=== PATIENT | male | born 1985 | race Two or more races ===

== ENCOUNTER 2017-07-19 17:38 | Emergency (ER) | payer SELFPAY ==
[~2017-07-19] VITALS: Ht 167.6 cm; Wt 60.8 kg
--- NOTE | 2017-07-19 17:52 | NUR ---
1 cm laceration to L palm s/p cut on ground
[2017-07-19] MEDS ORDERED: LIDOCAINE 1%-EPI 1:100,000 20 ML VIAL ONE (18:20)
--- NOTE | 2017-07-19 19:22 | NUR ---
Patient discharged to home in stable condition. Written and verbal after care instructions given. Patient verbalizes understanding of instruction.
[2017-07-19 19:23] VITALS: BP 130/75
== END 2017-07-19 19:24 | disposition home or self-care (01) ==
LOC: ER 17:42
DX: S61.412A Laceration without foreign body of left hand, initial encounter (principal); W18.39XA Other fall on same level, initial encounter; Y93.69 Activity, other involving other sports and athletics played as a team or group; Y92.89 Other specified places as the place of occurrence of the external cause; Y99.8 Other external cause status
CPT/HCPCS: A4606; A6402; J3490; Z7610

== ENCOUNTER 2018-05-08 11:36 | Emergency (ER) | payer SELFPAY ==
[~2018-05-08] VITALS: Ht 177.8 cm; Wt 99.8 kg
[2018-05-08 11:36] VITALS: BP 132/69
== END 2018-05-08 12:17 | disposition home or self-care (01) ==
LOC: ER 11:38
DX: S61.213D Laceration without foreign body of left middle finger without damage to nail, subsequent encounter (principal); W26.0XXD Contact with knife, subsequent encounter
CPT/HCPCS: A6402; Z7502